=== PATIENT | female | born 1945 | race Caucasian/White ===

== ENCOUNTER → 2019-01-23 | Outpatient (CLI) | payer OTHER, MEDICARE ==
[~2019-01-23] MED LIST: REGADENOSON 0.4 MG/5 ML DISP.SYRIN. IV ONE
--- NOTE | 2019-01-23 13:56 | PCVCIMAG ---
APPROVED REPORT Imaging Protocol: Rest Tc-99m/Stress Tc-99m 1 day Study performed: 01/23/2019 08:57:44 Indication: Dyspnea, Syncope, Lightheadedness, Racing Heart, Diaphoresis Patient Location: Out-Patient Stress Nurse: Kat Quiñonez RN, CRISS Robertson Tech:ARVIND Goodman Ht: 5 ft 4 in Wt: 171 lbs BSA: 1.83 m2 HR: 46 bpm BP: 145/68 mmHg BMI: 29.3 Rhythm: Sinus Bradycardia, PVC's Medical History Medical History: Age, Hyperlipidemia Medications: ASA, Pravastatin, Primidone Allergies: Many - none related to test Pretest Chest Pain Characteristics: No chest pain Exercise History: Physically active Resting Data Rest SPECT myocardial perfusion imaging was performed in supine position 45 minutes following the intravenous injection of 11.1 mCi of Tc-99m Sestamibi. Time of rest injection: 809 Date: 01/23/2019 Administration Route: IV Administration Site: Right Arm Pharmacologic Stress Pharmacologic stress test was performed by injecting Regadenoson 0.4 mg IV push over 10-15 seconds immediately followed by the intravenous injection of 31.2 mCi of Tc-99m Sestamibi. Time of stress injection: 939 Date: 01/23/2019 Administration Route: IV Administration Site: Right Arm Gated Stress SPECT was performed 45 minutes after stress injection. The images were gated to evaluate regional wall motion and calculate left ventricular ejection fraction. Stress Test Details Stress Test: Pharmacologic stress testing performed using 0.4 mg of regadenoson per 5 mL given IV over 10 seconds. Reason for pharmacologic stress test: Near Syncope. HRMax Heart Rate (APMHR): 147 bpm Resting HR: 46 bpmTarget HR (85% APMHR): 124 bpm Max HR Achieved: 73 bpm % of APMHR: 49 Recovery HR: 62 bpm BP Resting BP: 145/68 mmHg Max BP: 124/70 mmHg Recovery BP: 131/60 mmHg ECG Resting ECG: Sinus Bradycardia Stress ECG: Sinus Rhythm ST Change: None Maximum ST Deviation: 0 mm Arrhythmia: PVC Recovery ECG: Sinus Rhythm Recovery ST Change: None Recovery ST Deviation: 0 mm Recovery Arrhythmia: None Clinical Reason for Termination: Completed protocol Stress Symptoms: Lightheadedness, Chest Fullness Exercise duration: min 55 sec Symptoms resolved with caffeine. Stress ECG Conclusion ECG: Non-ischemic Clinical: Non-ischemic Study Quality Study: Good Study Data Post stress, the left ventricular ejection was 73%.. SSS: 0 SRS: 0 SDS: 0 TID = 0.95. Perfusion No evidence of stress induced ischemia or prior myocardial infarction. Wall Motion Normal left ventricular size and function with no regional wall motion abnormalities. Nuclear Conclusion No evidence of stress induced ischemia or prior myocardial infarction. Normal left ventricular size and function with no regional wall motion abnormalities. Post stress, the left ventricular ejection was 73%. No prior study available for comparison. Interpreted by: Reuben Upton MD Electronically Approved: 01/23/2019 13:39:59 <Conclusion> ECG: Non-ischemic Clinical: Non-ischemic
== END | disposition home or self-care (01) ==
LOC: PCVCIMAG 07:46
PROVIDERS: ATTEND Internal Medicine
DX: R06.09 Other forms of dyspnea (principal); R55 Syncope and collapse; R42 Dizziness and giddiness; R00.0 Tachycardia, unspecified; R61 Generalized hyperhidrosis
CPT/HCPCS: 78452; 93017; A9500; J2785